=== PATIENT | female | born 1955 | race Caucasian/White ===

== ENCOUNTER 2016-10-23 08:03 | Emergency (ER) | payer BC ==
--- NOTE | ~2016-10-23 | ER ---
PATIENT'S NAME: HAZEL CARRILLO [facility] AGE: 61 Y [address] ROOM: [place] [address] LOCATION: [facility] ADMIT DATE: 10/23/2016 ER/Outpatient Report DISCHARGE DATE: 10/23/2016 FAMILY PHYSICIAN: Dafne Bingham MD ATTENDING PHYSICIAN: Liza Castro TIME OF ARRIVAL: 0803 hours. TIME SEEN: 0805 hours. IDENTIFICATION: A 61-year-old female. CHIEF COMPLAINT: Allergic reaction. HISTORY OF PRESENT ILLNESS: The patient has dizziness, itching, and tightness in her throat. The patient does have a history of systemic mastocytosis. She was recently started on Xyzal per Dr. Gamboa, her remote pilot operator. She said she has reacted to Xyzal in the past. She did take prednisone 20 mg orally at home prior to arrival. She did not take her EpiPen because she did not feel that she needed that. She arrives here with the above-mentioned symptoms. ALLERGIES: SHE THOUGHT SHE HAD MULTIPLE ALLERGIES, BUT NOW JUST INTOLERANT TO CODEINE, AND WONDERS IF SHE IS INTOLERANT TO THE XYZAL. CURRENT MEDICATIONS: Current medications that she takes are: 1. Xyzal 5 mg q.a.m. 2. Women's One-a-Day. 3. Calcium 1000 mg b.i.d. 4. Zantac 150 mg b.i.d. 5. Flexeril 10 mg at h.s. 6. Tramadol 50 mg b.i.d. 7. Benadryl p.r.n., which she did not yet take today. 8. Prednisone p.r.n., which she did take 20 mg today. 9. EpiPen p.r.n. MEDICAL PROBLEMS: Interstitial cystitis, systemic mastocytosis, fibromyalgia, mild asthma, sciatica, and osteoporosis. PATIENT'S NAME: HAZEL CARRILLO [facility] AGE: 61 Y [address] ROOM: [place] [address] LOCATION: ED ADMIT DATE: 10/23/2016 ER/Outpatient Report DISCHARGE DATE: 10/23/2016 FAMILY PHYSICIAN: Dafne Bingham MD ATTENDING PHYSICIAN: Liza Castro PRIOR SURGERIES: Tonsillectomy, appendectomy, exploratory laparotomy, D and C, section, hysterectomy, repairs from hysterectomy, 3 ulcers, first rib resection, cholecystectomy, hiatal hernia repair, oophorectomy, bunionectomy, ERCP, shoulder arthroscopy, meningoma removal, left shoulder repair, and left carpal tunnel. SOCIAL HISTORY: The patient lives at home with her here in [place]. 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 She is near jail in 23 days she states she will be retiring. She smokes "it depends." Old records reflect 1 pack per day. Alcohol use, denies. Drug use, denies. FAMILY HISTORY: No pertinent family history. REVIEW OF SYSTEMS: All systems reviewed and negative other than what is noted in the HPI. PHYSICAL EXAMINATION: VITAL SIGNS: Weight 143 kg, pulse 92, respirations 20, temperature 98.6, sats 98% on room air, and blood pressure 156/99. GENERAL: A 61-year-old female who is flushed, but in no acute distress, no respiratory distress. HEENT: Normocephalic, atraumatic. Ears: TMs translucent both ears. Eyes: Pupils equal and reactive to light and accommodation. Extraocular movements intact. Nose: Mucosa pink. No lesions. Mouth: No lesions. Pharynx benign. NECK: Supple. No lymphadenopathy. LUNGS: Occasional scattered wheezes. HEART: Regular rate and rhythm. No murmur, rub, or gallop. ABDOMEN: Bowel sounds present. Soft, nondistended. No hepatosplenomegaly. No palpable masses. EXTREMITIES: No edema. SKIN: [place], warm, and dry. She does have a little flushing on her anterior chest. No hives are noted. LABORATORY DATA: Lab work was not obtained. IMPRESSION: Systemic mastocytosis, mildly symptomatic. PATIENT'S NAME: HAZEL CARRILL[facility] AGE: 61 Y [address] ROOM: [place], [place] [address] LOCATION: [facility] ADMIT DATE: 10/23/2016 ER/Outpatient Report DISCHARGE DATE: 10/23/2016 FAMILY PHYSICIAN: Dafne Bingham MD ATTENDING PHYSICIAN: Liza Castro PLAN: A 25 mg p.o. Benadryl, prednisone 20 mg p.o. for a total of 40 mg, she already took 20, DuoNeb aerosol treatment, even prior to the neb, the patient was feeling well, on repeat examination, she had no wheezes, she felt much better, she remained hemodynamically stable. She will be discharged home and remain off work today. Benadryl 25-50 mg q.6 h. p.r.n. wheezes, prednisone 20 mg b.i.d. for 5 days, stop the Xyzal until recheck with Dr. Gamboa, Combivent inhaler as directed, follow up immediately if any respiratory distress, follow up sooner if any problems, follow up with Dr. Gamboa next week. The patient and her understand and agree and all questions have been answered. LIZA CASTRO MD CAR/modl /[id number] d: 10/23/16 0947 t: 10/24/16 1531, OUTPATIENT REPORT
== END 2016-10-23 08:53 | disposition disaster alternative care site (69) ==
LOC: GMED 08:03
DX: D47.0 Mast cell neoplasms of uncertain behavior (principal); M81.0 Age-related osteoporosis without current pathological fracture; Z90.89 Acquired absence of other organs; Z90.49 Acquired absence of other specified parts of digestive tract; Z90.710 Acquired absence of both cervix and uterus
CPT/HCPCS: J7512

== ENCOUNTER 2016-10-27 10:44 | Emergency (ER) | payer BC ==
--- NOTE | ~2016-10-27 | ER ---
PATIENT'S NAME: HAZEL CARRILLO [facility] AGE: 61 Y [address] ROOM: [place] [address] LOCATION: ED ADMIT DATE: 10/27/2016 ER/Outpatient Report DISCHARGE DATE: 10/27/2016 FAMILY PHYSICIAN: Dafne Bingham MD ATTENDING PHYSICIAN: Liza Pacheco Time of Arrival: 1044 hours. Time of Evaluation: 1044 hours. IDENTIFICATION: A 61-year-old female. CHIEF COMPLAINT: Back and abdominal pain. HISTORY OF PRESENT ILLNESS: The patient was at work when she developed sudden onset of back pain. She was by herself and had difficulty getting to the phone. Pain radiated down her left hip and left leg. She has done some work at home, but she does not feel like it has been a significant change in what she normally does. She does have a history of back problems in the past. She said the pain radiates to her right lower quadrant and her suprapubic area, but that has improved at this time. ALLERGIES: CODEINE AND XYZAL. CURRENT MEDICATIONS: 1. Women's One-a-Day calcium. 2. Ranitidine 150 b.i.d. 3. Flexeril 10 mg at h.s. 4. Tramadol 50 mg b.i.d. 5. Benadryl p.r.n. 6. Prednisone p.r.n. 7. EpiPen p.r.n. MEDICAL PROBLEMS: Interstitial cystitis, systemic mastocytosis, fibromyalgia, mild asthma, sciatica. PRIOR SURGERIES: As listed on the form she filled out for and brought with her. SOCIAL HISTORY: The patient lives here in [place]. She is near correction and has less than 3 PATIENT'S NAME: HAZEL CARRILLO [facility] AGE: 61 Y [address] ROOM: [place] [address] LOCATION: ED ADMIT DATE: 10/27/2016 ER/Outpatient Report DISCHARGE DATE: 10/27/2016 FAMILY PHYSICIAN: Dafne Bingham MD ATTENDING PHYSICIAN: Liza Pacheco weeks left. Tobacco use denies. Alcohol use, denies. Drug use, denies. She is . REVIEW OF SYSTEMS: All systems reviewed and negative other than what is noted in the HPI. PHYSICAL EXAMINATION: VITAL SIGNS: Weight 74.4 kg, blood pressure 140/75, pulse 83, respirations 19, temperature 97.6, and saturations 99%. GENERAL: A 61-year-old female, in obvious distress. HEENT: Normocephalic and atraumatic. Ears: TMs are translucent both ears. Eyes: Pupils are equal and reactive to light and accommodation. Extraocular movements are intact. Nose: Mucosa pink. No lesions. Mouth: No lesions. Pharynx benign. NECK: Supple. No lymphadenopathy. LUNGS: Clear to auscultation. HEART: Regular rate and rhythm. ABDOMEN: Soft, nondistended, minimally tender to suprapubic palpation. BACK: She is tender in the left paraspinal region. No palpable deformities. Equivocal straight leg raise on the right. NEUROLOGIC: She is intact. Motor strength 5/5. Sensation is intact to light touch. EMERGENCY DEPARTMENT COURSE: The patient was given fentanyl pre-hospital. She was given another dose of fentanyl 50 mcg here in the emergency room, Valium 1 mg. Her pain was improved and she wanted to follow up with Dr. Isaacs to get her in, in an hour and a half. Hemoglobin 15.4, hematocrit 46.2, platelets 330, white count 7.3 with a normal differential. Sedimentation rate is 5. Chemistry panel is unremarkable. Amylase and lipase are normal. CRP less than 0.29. UA is negative. IMPRESSION: Acute exacerbation of chronic back pain. PLAN: Lawn 5/325, she has at home, use as needed for pain; Valium p.r.n. spasm 2 mg 1/2 to 1 tablet q.8 hours p.r.n. spasm, dispensed 10 with 0 refills. No work today or tomorrow. Return to work as tolerated on Thursday and follow up with Dr. Isaacs today as he recommended in 1-1/2 hours. The patient and her understand and agree and all questions have been answered. PATIENT'S NAME: HAZEL CARRILLO [facility] AGE: 61 Y [address] ROOM: [place] [address] LOCATION: ED ADMIT DATE: 10/27/2016 ER/Outpatient Report DISCHARGE DATE: 10/27/2016 FAMILY PHYSICIAN: Dafne Bingham MD ATTENDING PHYSICIAN: Liza Pacheco MD CAR/modl /[id number] d: 10/28/1652 t: 11/04/16 1412, OUTPATIENT REPORT
[2016-10-27 11:12] LABS: BILIRUBIN URINE NEGATIVE (NEGATIVE); BLOOD URINE NEGATIVE /UL (NEGATIVE); COLOR URINE YELLOW (YELLOW); GLUCOSE URINE NEGATIVE (NEGATIVE); KETONE URINE NEGATIVE (NEGATIVE); LEUKOCYTES URINE NEGATIVE /UL (NEGATIVE); NITRITE URINE NEGATIVE (NEGATIVE); PROTEIN URINE NEGATIVE (NEGATIVE); UROBILINOGEN URINE NORMAL (NORMAL)
[2016-10-27 11:16] LABS: TURBIDITY URINE CLEAR (CLEAR)
[2016-10-27 11:18] LABS: ALBUMIN 3.5 gm/dL (3.5-5.0); ALK PHOS 87 IU/L (33-138); ALT 40 IU/L (12-78); ANION GAP 13.7 (10.0-19.0); AST 18 IU/L (10-40); BLOOD UREA NITROGEN 14 mg/dL (6-24); CALCIUM 9.3 mg/dL (8.5-10.5); CHLORIDE 109 mMol/L (96-110); CO2 23 mMol/L (22-32); CREATININE 0.9 mg/dL (0.5-1.1); POTASSIUM 3.7 mMol/L (3.7-5.1); SODIUM 142 mMol/L (135-145); TOTAL PROTEIN 6.5 g/dL (6.0-8.4)
[2016-10-27 11:20] LABS: ESTIMATED GFR (MDRD EQUATION) > 60; TOTAL BILIRUBIN 0.2 mg/dL (0.0-1.5)
[2016-10-27 11:23] LABS: BASOPHIL # 0.1 K/uL (0.0-0.2); BASOPHIL % 0.7 %; EOSINOPHIL # 0.2 K/uL (0.0-0.5); EOSINOPHIL % 2.5 %; HEMATOCRIT 46.2 % (33.0-46.0); HEMOGLOBIN 15.4 g/dL (10.0-15.0); IMMATURE GRANULOCYTE % 0.3 %; LYMPHOCYTE % 27.7 %; MCH 30.3 pg (27.0-34.0); MCHC 33.3 gm/dL (32.0-36.5); MCV 90.8 fl (83.0-98.0); MONOCYTE # 0.5 K/uL (0.0-1.0); MONOCYTE % 6.6 %; NEUTROPHIL # (ANC) 4.5 K/uL (1.8-7.8); NEUTROPHIL % 62.2 %; NRBC % 0 /100WBC (0-0.00); PLATELET COUNT 330 K/uL (150-450); RBC 5.09 M/uL (3.50-5.50); RDW-CV 12.6 % (11.9-14.6); WBC 7.3 K/uL (4.0-11.0)
== END 2016-10-27 11:56 | disposition disaster alternative care site (69) ==
LOC: GMED 10:44
PROVIDERS: Family Medicine
DX: G89.29 Other chronic pain (principal); M54.9 Dorsalgia, unspecified; J45.909 Unspecified asthma, uncomplicated; Z88.8 Allergy status to other drugs, medicaments and biological substances
CPT/HCPCS: J3010; J3360

== ENCOUNTER → 2016-10-27 | Outpatient (CLI) | payer BC | END | disposition disaster alternative care site (69) | LOC: GAMB 10:17 | DX: R10.30 Lower abdominal pain, unspecified (principal); M54.9 Dorsalgia, unspecified | CPT/HCPCS: A0425; A0429; J3010 ==

== ENCOUNTER → 2016-12-16 | Outpatient (CLI) | payer BC | END | disposition disaster alternative care site (69) | LOC: GBCOE 12-12 16:00 | DX: Z12.31 Encounter for screening mammogram for malignant neoplasm of breast (principal) | CPT/HCPCS: G0202 ==

== ENCOUNTER → 2017-04-08 | Outpatient (CLI) | payer BC | END | disposition disaster alternative care site (69) | LOC: GAMB 12:43 | DX: M54.2 Cervicalgia (principal); M54.9 Dorsalgia, unspecified; R11.0 Nausea; Z87.39 Personal history of other diseases of the musculoskeletal system and connective tissue; V49.50XA Passenger injured in collision with unspecified motor vehicles in traffic accident, initial encounter; Y93.9 Activity, unspecified; Y92.9 Unspecified place or not applicable; Y99.9 Unspecified external cause status | CPT/HCPCS: A0425; A0427; J2405; J3010 ==